=== PATIENT | male | born 1950 | race Caucasian/White ===

== ENCOUNTER 2023-11-03 08:01 | Outpatient (CLI) | payer BC ==
[2023-11-03] MEDS ORDERED: Iopamidol 370 76% 100 ML VIAL ONE (10:45)
== END 2023-11-03 08:02 | disposition home or self-care (01) ==
LOC: CT 08:01
PROVIDERS: ATTEND Family Medicine
DX: R10.32 Left lower quadrant pain (principal); K57.30 Diverticulosis of large intestine without perforation or abscess without bleeding; N28.1 Cyst of kidney, acquired
CPT/HCPCS: 74177; 82565; Q9967